=== PATIENT | female | born 1965 | race Caucasian/White ===

== ENCOUNTER 2018-05-29 10:52 | Outpatient (CLI) | payer BC ==
[2018-05-29 19:19] LABS: HB2 TOTAL 15.5 g/dL; HEMOGLOBIN A1C 0.58 g/dL; HEMOGLOBIN A1C % 5.6 % (4.6-6.2)
[2018-05-29 19:27] LABS: BASOPHILS % (AUTO) 0.4 %; EOSINOPHILS # (AUTO) 0.2 10^3/uL (0.0-0.7); EOSINOPHILS % (AUTO) 3.5 %; HGB - HEMOGLOBIN 14.7 g/dL (12.0-16.0); LYMPHOCYTES # (AUTO) 1.6 10^3/uL (1.5-3.5); LYMPHOCYTES % (AUTO) 31.4 %; MEAN CORPUSCULAR HEMOGLOBIN 29.5 pg (27.0-31.0); MEAN CORPUSCULAR HGB CONC 33.9 g/dL (32.0-36.0); MEAN CORPUSCULAR VOLUME 87.1 fL (81.0-99.0); MEAN PLATELET VOLUME 10.4 fL (7.9-10.8); MONOCYTES # (AUTO) 0.4 10^3/uL (0.0-1.0); MONOCYTES % (AUTO) 7.7 %; PLT - PLATELET COUNT 181 10^3/uL (130-450); RED BLOOD COUNT 4.99 10^6/uL (4.20-5.40); RED CELL DISTRIBUTION WIDTH 14.3 % (12.0-15.0); WHITE BLOOD COUNT 5.2 x10^3/uL (4.8-10.8)
[2018-05-29 19:37] LABS: ALBUMIN/GLOBULIN RATIO 1.7 (1.0-2.2); ALKALINE PHOSPHATASE 53 IU/L (42-121); ALT ALANINE AMINOTRANSFERASE 28 IU/L (10-60); AST ASPARTATE AMINOTRANSFERASE 20 IU/L (10-42); BILIRUBIN,TOTAL 1.8 mg/dL (0.2-1.0); BUN - BLOOD UREA NITROGEN 16 mg/dL (6-20); CALCIUM 9.5 mg/dL (8.5-10.3); CARBON DIOXIDE - CO2 30 mmol/L (21-32); CHLORIDE 101 mmol/L (101-111); CHOL/HDL RATIO 5.2 (<4.4); CHOLESTEROL 268 mg/dL; CREATININE 0.7 mg/dL (0.4-1.0); GFR - MDRD 87 (>89); GLUCOSE 100 mg/dL (70-100); HDL CHOLESTEROL 52 mg/dL; LDL CHOLESTEROL,CALCULATED 198 mg/dL; LDL/HDL RATIO 3.8 (<4.4); SODIUM 138 mmol/L (135-145); TOTAL PROTEIN 6.3 g/dL (6.7-8.2); VLDL CHOLESTEROL 18 mg/dL
== END 2018-05-29 10:53 | disposition home or self-care (01) ==
LOC: LAB.WCP 10:52
PROVIDERS: ATTEND Family Medicine
DX: E55.9 Vitamin D deficiency, unspecified (principal); R73.03 Prediabetes; I10 Essential (primary) hypertension; E03.9 Hypothyroidism, unspecified
CPT/HCPCS: 36415; 80053; 80061; 82306; 83036; 83721; 84443; 85025

== ENCOUNTER 2019-02-12 12:45 | Outpatient (CLI) | payer BC ==
[2019-02-12 20:37] LABS: CHOL/HDL RATIO 4.6 (<4.4); CHOLESTEROL 242 mg/dL; HDL CHOLESTEROL 53 mg/dL; LDL CHOLESTEROL,CALCULATED 173 mg/dL; LDL/HDL RATIO 3.3 (<4.4); VLDL CHOLESTEROL 16 mg/dL
== END 2019-02-12 12:46 | disposition home or self-care (01) ==
LOC: LAB.WCP 12:45
PROVIDERS: ATTEND Family Medicine
DX: E78.5 Hyperlipidemia, unspecified (principal)
CPT/HCPCS: 36415; 80061; 83721

== ENCOUNTER 2019-05-27 08:00 | Outpatient (CLI) | payer BC ==
[2019-05-27 19:37] LABS: ALBUMIN 4.1 g/dL (3.2-5.5); ALBUMIN/GLOBULIN RATIO 1.9 (1.0-2.2); ALKALINE PHOSPHATASE 42 IU/L (42-121); ALT ALANINE AMINOTRANSFERASE 16 IU/L (10-60); AST ASPARTATE AMINOTRANSFERASE 18 IU/L (10-42); BILIRUBIN,TOTAL 1.2 mg/dL (0.2-1.0); BUN - BLOOD UREA NITROGEN 16 mg/dL (6-20); CALCIUM 9.3 mg/dL (8.5-10.3); CARBON DIOXIDE - CO2 27 mmol/L (21-32); CHLORIDE 103 mmol/L (101-111); CHOL/HDL RATIO 3.7 (<4.4); CHOLESTEROL 200 mg/dL; CREATININE 0.8 mg/dL (0.4-1.0); GFR - MDRD 74 (>89); GLUCOSE 99 mg/dL (70-100); HDL CHOLESTEROL 54 mg/dL; LDL CHOLESTEROL,CALCULATED 129 mg/dL; LDL/HDL RATIO 2.4 (<4.4); SODIUM 141 mmol/L (135-145); TOTAL PROTEIN 6.3 g/dL (6.7-8.2); VLDL CHOLESTEROL 17 mg/dL
== END 2019-05-27 08:01 | disposition home or self-care (01) ==
LOC: LAB.WCP 08:00
PROVIDERS: ATTEND Physician Assistant
DX: E78.5 Hyperlipidemia, unspecified (principal); E55.9 Vitamin D deficiency, unspecified
CPT/HCPCS: 36415; 80053; 80061; 82306; 83721

== ENCOUNTER 2020-04-22 09:53 | Outpatient (CLI) | payer BC ==
--- NOTE | 2020-04-22 10:07 | XRAY Report ---
Reason: RIGHT SHOULDER ARTHRITIS Procedure Date: 04/22/2020 Accession Number: [id number] / [id number] Procedure: WCP - Shoulder 2 View RT CPT Code: Final Report FULL RESULT: PROCEDURE: Shoulder 2 View RT INDICATIONS: RIGHT SHOULDER ARTHRITIS TECHNIQUE: 2 views of the shoulder were acquired. COMPARISON: None. FINDINGS: Bones: No acute fractures or dislocations. Mild degenerative changes of the acromioclavicular joint. No suspicious bony lesions. Visualized ribs appear intact. Soft tissues: No suspicious soft tissue calcifications. IMPRESSION: Right shoulder without acute fracture or malalignment. Mild degenerative changes of the acromioclavicular joint. Reviewed by: Ramez Tai MD on 04/22/2020 10:06 AM PDT Approved by: Ramez Tai MD on 04/22/2020 10:06 AM PDT Station ID: [id number]
== END 2020-04-22 23:59 | disposition home or self-care (01) ==
LOC: DI.WCP 09:53
PROVIDERS: ATTEND Family Medicine
DX: M19.011 Primary osteoarthritis, right shoulder (principal)

== ENCOUNTER 2020-06-15 11:45 | Outpatient (CLI) | payer BC ==
[2020-06-15 18:24] LABS: BASOPHILS # (AUTO) 0.1 10^3/uL (0.0-0.1); BASOPHILS % (AUTO) 0.8 %; EOSINOPHILS # (AUTO) 0.2 10^3/uL (0.0-0.7); HGB - HEMOGLOBIN 14.8 g/dL (12.0-16.0); LYMPHOCYTES # (AUTO) 1.6 10^3/uL (1.5-3.5); LYMPHOCYTES % (AUTO) 25.7 %; MEAN CORPUSCULAR HEMOGLOBIN 29.7 pg (27.0-31.0); MEAN CORPUSCULAR HGB CONC 32.7 g/dL (32.0-36.0); MEAN PLATELET VOLUME 12.7 fL (7.9-10.8); MONOCYTES # (AUTO) 0.5 10^3/uL (0.0-1.0); NEUTROPHILS % (AUTO) 62.3 %; PLT - PLATELET COUNT 192 10^3/uL (130-450); RED BLOOD COUNT 4.98 10^6/uL (4.20-5.40); WHITE BLOOD COUNT 6.4 x10^3/uL (4.8-10.8)
[2020-06-15 18:46] LABS: ALBUMIN 4.2 g/dL (3.2-5.5); ALBUMIN/GLOBULIN RATIO 1.8 (1.0-2.2); ALKALINE PHOSPHATASE 52 IU/L (42-121); ALT ALANINE AMINOTRANSFERASE 22 IU/L (10-60); AST ASPARTATE AMINOTRANSFERASE 15 IU/L (10-42); BILIRUBIN,TOTAL 1.4 mg/dL (0.2-1.0); BUN - BLOOD UREA NITROGEN 15 mg/dL (6-20); CALCIUM 9.6 mg/dL (8.5-10.3); CARBON DIOXIDE - CO2 27 mmol/L (21-32); CHLORIDE 103 mmol/L (101-111); CHOL/HDL RATIO 4.6 (<4.4); CHOLESTEROL 254 mg/dL; CREATININE 0.9 mg/dL (0.4-1.0); GLUCOSE 124 mg/dL (70-100); HDL CHOLESTEROL 55 mg/dL; LDL CHOLESTEROL,CALCULATED 178 mg/dL; LDL/HDL RATIO 3.2 (<4.4); SODIUM 139 mmol/L (135-145); TOTAL PROTEIN 6.6 g/dL (6.7-8.2); VLDL CHOLESTEROL 21 mg/dL
== END 2020-06-15 23:59 | disposition home or self-care (01) ==
LOC: LAB.WCP 11:45
PROVIDERS: ATTEND Family Medicine
DX: E78.5 Hyperlipidemia, unspecified (principal); I10 Essential (primary) hypertension; E03.9 Hypothyroidism, unspecified
CPT/HCPCS: 36415; 80053; 80061; 82306; 83721; 84443; 85025

== ENCOUNTER 2020-06-18 12:34 | Outpatient (CLI) | payer BC | END 2020-06-18 12:35 | disposition home or self-care (01) | LOC: DI 12:34 | PROVIDERS: ATTEND Physician Assistant | DX: Z53.9 Procedure and treatment not carried out, unspecified reason (principal) ==

== ENCOUNTER 2020-07-02 12:51 | Outpatient (CLI) | payer BC ==
--- NOTE | 2020-07-02 16:48 | MRI Report ---
PROCEDURE: Shoulder RT W/O INDICATIONS: RIGHT SHOULDER PAIN TECHNIQUE: Noncontrast oblique coronal T2 fast spin echo with fat saturation, oblique sagittal T1 spin echo and T2 fast spin echo with fat saturation, axial T1 spin echo and T2 fast spin echo with fat saturation t hrough the shoulder. COMPARISON: Shoulder radiograph dated 05/31/2020. FINDINGS: Image quality: Excellent. Rotator cuff: There is full-thickness rupture of distal supraspinatus and infraspinatus at their inse rtion on humeral head with up to 3 cm medial retraction of torn tendon fibers to the level of acromio clavicular joint. Distal subscapularis tendinosis and moderate grade intrasubstance partial thickness tear is also noted.. Severe supraspinatus muscle atrophy and moderate infraspinatus muscle atrophy i s seen on sagittal images. Bones and bursae: No bone marrow contusions or fractures. Subcortical cyst formation in superior gle noid is seen. Moderate acromioclavicular joint and glenohumeral joint osteoarthritic changes are seen . Superior migration of humeral head in relation to glenoid is also noted. There is moderate amount o f joint fluid and subacromial subdeltoid bursal fluid. Capsule and soft tissues: In the absence of intra-articular contrast, there is suggestion of superio r anterior labral tear at 12 to 2:00 position. The glenohumeral ligaments appear intact. The long he ad of the biceps tendinosis and low to moderate grade partial-thickness tear is seen. The rotator in terval appears normal, without fibrosis. The coracohumeral ligament is normal in thickness. IMPRESSION: 1. Full-thickness rupture of distal supraspinatus and infraspinatus at their insertions on humeral he ad with up to 3 cm medial retraction of torn tendon fibers to the level of acromioclavicular joint. M oderate to severe supraspinatus muscle atrophy and moderate infraspinatus muscle atrophy. Distal subs capularis tendinosis and moderate grade intrasubstance partial thickness tear. 2. Moderate acromioclavicular joint and glenohumeral joint osteoarthritis. No fracture or dislocation . Moderate amount of joint effusion and subacromial subdeltoid bursal fluid. No gross intra-articular loose body. 3. Suggestion of superior anterior labral tear at 12 to 2:00 position. 4. Tendinosis and low-grade partial-thickness tear involving proximal intra-articular portion of long head of biceps tendon. Reviewed by: Vladimir Londono MD on 07/02/2020 4:47 PM PDT Approved by: Vladimir Londono MD on 07/02/2020 4:47 PM PDT Station ID: [id number]
== END 2020-07-02 12:52 | disposition home or self-care (01) ==
LOC: DI 12:51
PROVIDERS: ATTEND Physician Assistant
DX: M75.121 Complete rotator cuff tear or rupture of right shoulder, not specified as traumatic (principal); S46.111A Strain of muscle, fascia and tendon of long head of biceps, right arm, initial encounter; R93.6 Abnormal findings on diagnostic imaging of limbs; M19.011 Primary osteoarthritis, right shoulder

== ENCOUNTER 2021-01-25 13:12 | Outpatient (CLI) | payer BC ==
--- NOTE | 2021-01-26 09:55 | Mammography Report ---
BILATERAL DIGITAL SCREENING MAMMOGRAM 3D/2D: 01/25/2021 CLINICAL: Baseline exam. Routine screening. No prior exams were available for comparison. There are scattered fibroglandular elements in both br easts. There are grouped fine calcifications in the right breast at 11 o'clock posterior depth. There also is an oval equal density focal asymmetry with an indistinct margin in the right breast at 7 o'clock posterior depth. No other significant masses, calcifications, or other findings are seen in either breast. IMPRESSION: INCOMPLETE: NEEDS ADDITIONAL IMAGING EVALUATION The grouped fine calcifications in the right breast at 11 o'clock posterior depth are indeterminate. Mediolateral, spot magnification, and additional views are recommended. The oval equal density focal asymmetry in the right breast at 7 o'clock posterior depth is indetermin ate. Mediolateral and spot compression views as well as additional views with possible ultrasound ar e recommended. This exam was interpreted at Station ID: [id number]. NOTE: For mammograms, a report in lay terms will be sent to the patient. Approximately 15% of breast malignancies will not be visualized mammographically. In the management of a palpable breast mass, a negative mammogram must not discourage biopsy of a clinically suspicious lesion. Electronically Signed By: Rickie Rodriguez M.D. ddp/brijesh:01/25/2021 16:49:20 ACR BI-RADS Category 0: Incomplete 3340F PARENCHYMAL PATTERN: (A) - The breast(s) demonstrate(s) scattered fibroglandular densities. BI-RADS CATEGORY: (0) - 0 Mammo and US [id number] Immediate follow-up LATERALITY: (B)
== END 2021-01-25 13:13 | disposition home or self-care (01) ==
LOC: DI.N 13:12
DX: Z12.31 Encounter for screening mammogram for malignant neoplasm of breast (principal); N64.89 Other specified disorders of breast

== ENCOUNTER 2021-02-16 09:14 | Outpatient (CLI) | payer BC ==
--- NOTE | 2021-02-17 12:06 | Ultrasound Report ---
LIMITED ULTRASOUND OF RIGHT BREAST: 02/16/2021 CLINICAL: Patient returns today to evaluate an asymmetry in right breast. Comparison is made to exams dated: 02/16/2021 mammogram and 01/25/2021 mammogram - [facility]. Ultrasound of the right breast 7-10 o'clock region was performed. Up scale images of the real-time examination were reviewed. No significant abnormalities were seen sonographically in the right breast. Specifically, no finding to correspond to the patient's resolved screening mammographic abnormality. IMPRESSION: PROBABLY BENIGN NO sonographic abnormalities. A follow-up mammogram and an ultrasound in 6 months is recommended to d emonstrate stability of right breast calcifications and ensure stability of the resolved screening ma mmogram asymmetry. Findings and recommendations were conveyed to the patient at time of exam. This exam was interpreted at Station ID: [id number]. Electronically Signed By: Emily trujillo/:02/16/2021 10:41:32 Ultrasound BI-RADS: 3 Probably benign BI-RADS CATEGORY: (3) - 3 Mammo and [place] [id number] 6 month follow-up LATERALITY: (B)
--- NOTE | 2021-02-17 12:06 | Mammography Report ---
UNILATERAL RIGHT DIGITAL DIAGNOSTIC MAMMOGRAM 3D/2D: 02/16/2021 CLINICAL: Patient returns for magnification views of microcalcifications in the right breast. Patient returns today to evaluate a focal asymmetry in the right breast. Comparison is made to exam dated: 01/25/2021 mammogram - [facility]. There are scat tered fibroglandular elements in right breast. The oval equal density focal asymmetry with an indistinct margin in the right breast at 7 o'clock pos terior depth is no longer discretely seen and most likely is fibroglandular tissue. This is not conf irmed with additional views. There also are loosely grouped dystrophic calcifications in the right breast at 11 o'clock posterior depth. No other significant masses or calcifications are seen in the breast. IMPRESSION: INCOMPLETE: NEEDS ADDITIONAL IMAGING EVALUATION An ultrasound is recommended to confirm resolution of the oval equal density focal asymmetry in the r ight breast at 7 o'clock posterior depth. This was performed immediately following this exam. The calcifications in the right breast at 11 o'clock posterior depth most likely are fibrocystic lemus ge or sclerosing adenosis and are probably benign. A follow-up mammogram in 6 months is recommended. This exam was interpreted at Station ID: [id number]. NOTE: For mammograms, a report in lay terms will be sent to the patient. Approximately 15% of breast malignancies will not be visualized mammographically. In the management of a palpable breast mass, a negative mammogram must not discourage biopsy of a clinically suspicious lesion. Electronically Signed By: Emily trujillo/:02/16/2021 10:42:36 ACR BI-RADS Category 0: Incomplete 3340F PARENCHYMAL PATTERN: (A) - The breast(s) demonstrate(s) scattered fibroglandular densities. BI-RADS CATEGORY: (0) - 0 Ultrasound [id number] Immediate follow-up LATERALITY: (B)
== END 2021-02-16 09:15 | disposition home or self-care (01) ==
LOC: DI 09:14
PROVIDERS: ATTEND Physician Assistant Medical
DX: R92.8 Other abnormal and inconclusive findings on diagnostic imaging of breast (principal)

== ENCOUNTER 2021-04-28 08:00 | Outpatient (CLI) | payer BC ==
[2021-04-28 18:00] LABS: BASOPHILS # (AUTO) 0.1 10^3/uL (0.0-0.1); BASOPHILS % (AUTO) 0.9 %; EOSINOPHILS # (AUTO) 0.2 10^3/uL (0.0-0.7); HCT - HEMATOCRIT 48.4 % (37.0-47.0); HGB - HEMOGLOBIN 15.3 g/dL (12.0-16.0); LYMPHOCYTES # (AUTO) 1.8 10^3/uL (1.5-3.5); LYMPHOCYTES % (AUTO) 32.3 %; MEAN CORPUSCULAR HEMOGLOBIN 28.7 pg (27.0-31.0); MEAN CORPUSCULAR HGB CONC 31.6 g/dL (32.0-36.0); MEAN CORPUSCULAR VOLUME 90.6 fL (81.0-99.0); MEAN PLATELET VOLUME 12.6 fL (7.9-10.8); MONOCYTES # (AUTO) 0.5 10^3/uL (0.0-1.0); MONOCYTES % (AUTO) 9.3 %; NEUTROPHILS % (AUTO) 53.3 %; PLT - PLATELET COUNT 212 10^3/uL (130-450); RED BLOOD COUNT 5.34 10^6/uL (4.20-5.40); RED CELL DISTRIBUTION WIDTH 13.9 % (12.0-15.0); WHITE BLOOD COUNT 5.7 x10^3/uL (4.8-10.8)
[2021-04-28 18:22] LABS: ALBUMIN 4.3 g/dL (3.2-5.5); ALKALINE PHOSPHATASE 42 IU/L (42-121); ALT ALANINE AMINOTRANSFERASE 24 IU/L (10-60); AST ASPARTATE AMINOTRANSFERASE 18 IU/L (10-42); BUN - BLOOD UREA NITROGEN 18 mg/dL (6-20); CALCIUM 9.6 mg/dL (8.5-10.3); CARBON DIOXIDE - CO2 29 mmol/L (21-32); CHLORIDE 99 mmol/L (101-111); CHOL/HDL RATIO 5.4 (<4.4); CHOLESTEROL 250 mg/dL; CREATININE 0.8 mg/dL (0.4-1.0); GFR - MDRD 74 (>89); GLUCOSE 116 mg/dL (70-100); HDL CHOLESTEROL 46 mg/dL; LDL CHOLESTEROL,CALCULATED 178 mg/dL; LDL/HDL RATIO 3.9 (<4.4); SODIUM 138 mmol/L (135-145); TOTAL PROTEIN 6.4 g/dL (6.7-8.2); TRIGLYCERIDES 130 mg/dL; VLDL CHOLESTEROL 26 mg/dL
[2021-04-28 18:25] LABS: THYROID STIMULATING HORMONE 1.41 uIU/mL (0.34-5.60)
[2021-04-28 18:27] LABS: FREE T4 (FREE THYROXINE) 1.28 ng/dL (0.58-1.64)
[2021-04-28 20:26] LABS: ESTIMATED AVERAGE GLUCOSE 123 mg/dL (70-100); HEMOGLOBIN A1c% 5.9 % (4.27-6.07)
== END 2021-04-28 23:59 | disposition home or self-care (01) ==
LOC: LAB.WCP 08:00
PROVIDERS: ATTEND Nurse Practitioner
DX: I10 Essential (primary) hypertension (principal); E55.9 Vitamin D deficiency, unspecified; R73.03 Prediabetes; E03.9 Hypothyroidism, unspecified; E78.5 Hyperlipidemia, unspecified
CPT/HCPCS: 36415; 80053; 80061; 82306; 83036; 83721; 84439; 84443; 85025

== ENCOUNTER 2022-05-02 12:48 | Outpatient (CLI) | payer BC ==
--- NOTE | 2022-05-03 08:13 | Mammography Report ---
BILATERAL DIGITAL DIAGNOSTIC MAMMOGRAM 3D/2D: 05/02/2022 CLINICAL: Patient returns for a 6 month follow up of the right breast, due for bilateral exam. Focal assym and calcs. Comparison is made to exams dated: 02/16/2021 mammogram and 01/25/2021 mammogram - [facility]. There are scattered fibroglandular elements in both breasts. There are stable grouped dystrophic calcifications in the right breast at 11 o'clock posterior depth. No other significant masses, calcifications, or other findings are seen in either breast. IMPRESSION: BENIGN The stable grouped dystrophic calcifications in the right breast most likely are fibrocystic change o r sclerosing adenosis and are benign. There is no mammographic evidence of malignancy. Return to annual mammogram screening schedule is rec ommended. Based on the Tyrer Cuzick model (a risk assessment model) the patients lifetime risk is 7.2% and her 10 year risk is 2.6%. According to the ACR, ACS, and NCCN guidelines, an annual breast MRI exam mary g with mammogram is recommended if the patients lifetime risk is 20% or greater. This exam was interpreted at Station ID: [id number]. NOTE: For mammograms, a report in lay terms will be sent to the patient. Approximately 15% of breast malignancies will not be visualized mammographically. In the management of a palpable breast mass, a negative mammogram must not discourage biopsy of a clinically suspicious lesion. Electronically Signed By: Han Noble acr/:05/02/2022 13:50:28 ACR BI-RADS Category 2: Benign Finding(s) 3342F PARENCHYMAL PATTERN: (A) - The breast(s) demonstrate(s) scattered fibroglandular densities. BI-RADS CATEGORY: (2) - 2 Mammogram [id number] return to screening LATERALITY: (B)
== END 2022-05-02 12:49 | disposition home or self-care (01) ==
LOC: DI 12:48
PROVIDERS: ATTEND Nurse Practitioner
DX: R92.1 Mammographic calcification found on diagnostic imaging of breast (principal)

== ENCOUNTER 2022-07-24 11:02 | Outpatient (CLI) | payer BC ==
[2022-07-24 18:25] LABS: ALBUMIN 4.2 g/dL (3.2-5.5); ALBUMIN/GLOBULIN RATIO 1.8 (1.0-2.2); ALKALINE PHOSPHATASE 50 IU/L (42-121); ALT ALANINE AMINOTRANSFERASE 29 IU/L (10-60); AST ASPARTATE AMINOTRANSFERASE 21 IU/L (10-42); BILIRUBIN,TOTAL 1.1 mg/dL (0.2-1.0); BUN - BLOOD UREA NITROGEN 16 mg/dL (6-20); CALCIUM 9.7 mg/dL (8.5-10.3); CARBON DIOXIDE - CO2 28 mmol/L (21-32); CHLORIDE 101 mmol/L (101-111); CHOL/HDL RATIO 4.9 (<4.4); CHOLESTEROL 207 mg/dL; CREATININE 0.9 mg/dL (0.4-1.0); GFR - MDRD 64 (>89); GLUCOSE 107 mg/dL (70-100); HDL CHOLESTEROL 42 mg/dL; LDL CHOLESTEROL,CALCULATED 138 mg/dL; LDL/HDL RATIO 3.3 (<4.4); POTASSIUM 3.9 mmol/L (3.5-5.0); SODIUM 137 mmol/L (135-145); TOTAL PROTEIN 6.6 g/dL (6.7-8.2); TRIGLYCERIDES 135 mg/dL; URIC ACID 6.8 mg/dL (2.6-7.2); VLDL CHOLESTEROL 27 mg/dL
[2022-07-24 18:28] LABS: BASOPHILS # (AUTO) 0.1 10^3/uL (0.0-0.1); BASOPHILS % (AUTO) 0.8 %; EOSINOPHILS # (AUTO) 0.3 10^3/uL (0.0-0.7); EOSINOPHILS % (AUTO) 5.1 %; HCT - HEMATOCRIT 47.3 % (37.0-47.0); HGB - HEMOGLOBIN 15.6 g/dL (12.0-16.0); LYMPHOCYTES # (AUTO) 1.9 10^3/uL (1.5-3.5); LYMPHOCYTES % (AUTO) 32.6 %; MEAN CORPUSCULAR HEMOGLOBIN 28.8 pg (27.0-31.0); MEAN CORPUSCULAR VOLUME 87.4 fL (81.0-99.0); MEAN PLATELET VOLUME 12.7 fL (7.9-10.8); MONOCYTES # (AUTO) 0.5 10^3/uL (0.0-1.0); MONOCYTES % (AUTO) 8.7 %; NEUTROPHILS # (AUTO) 3.1 10^3/uL (1.5-6.6); NEUTROPHILS % (AUTO) 52.6 %; PLT - PLATELET COUNT 222 10^3/uL (130-450); RED BLOOD COUNT 5.41 10^6/uL (4.20-5.40); RED CELL DISTRIBUTION WIDTH 13.4 % (12.0-15.0); WHITE BLOOD COUNT 5.9 x10^3/uL (4.8-10.8)
[2022-07-24 18:29] LABS: CRP - C-REACTIVE PROTEIN < 1.0 mg/dL (0-1.0)
[2022-07-24 18:31] LABS: THYROID STIMULATING HORMONE 1.55 uIU/mL (0.34-5.60)
[2022-07-24 18:33] LABS: FREE T4 (FREE THYROXINE) 1.26 ng/dL (0.58-1.64)
[2022-07-24 20:32] LABS: ESTIMATED AVERAGE GLUCOSE 120 mg/dL (70-100); HEMOGLOBIN A1c% 5.8 % (4.27-6.07)
[2022-07-24 20:44] LABS: RHEUMATOID FACTOR NEGATIVE (Negative)
[2022-07-26 04:08] LABS: HCV AB <0.1 s/co ratio (0.0-0.9)
[2022-07-26 18:08] LABS: ANTI-DNA (DS) AB QN <1 IU/mL (0-9); CENTROMERE B ANTIBODIES <0.2 AI (0.0-0.9); CHROMATIN ANTIBODIES <0.2 AI (0.0-0.9); JO-1 AB <0.2 AI (0.0-0.9); RIBOSOMAL P ANTIBODIES <0.2 AI (0.0-0.9); RNP ANTIBODIES <0.2 AI (0.0-0.9); SCLERODERMA-70 ANTIBODIES <0.2 AI (0.0-0.9); SJOGREN'S ANTI-SS-A <0.2 AI (0.0-0.9); SJOGREN'S ANTI-SS-B <0.2 AI (0.0-0.9); SMITH ANTIBODIES <0.2 AI (0.0-0.9); SMITH/RNP ANTIBODIES <0.2 AI (0.0-0.9)
[2022-07-27 21:07] LABS: CYCLIC CITRULLINATED PEP IGG/A 5 units (0-19)
== END 2022-07-24 11:03 | disposition home or self-care (01) ==
LOC: LAB.N 11:02
PROVIDERS: ATTEND Nurse Practitioner
DX: I10 Essential (primary) hypertension (principal); E78.5 Hyperlipidemia, unspecified; Z12.11 Encounter for screening for malignant neoplasm of colon; R73.03 Prediabetes; E03.9 Hypothyroidism, unspecified; M13.0 Polyarthritis, unspecified; Z11.59 Encounter for screening for other viral diseases
CPT/HCPCS: 36415; 80053; 80061; 83036; 83721; 84439; 84443; 84550; 85025; 85651; 86140; 86200; 86225; 86235; 86430; 86803

== ENCOUNTER 2023-11-19 10:41 | Outpatient (CLI) | payer BC ==
--- NOTE | 2023-11-20 11:58 | Mammography Report ---
BILATERAL DIGITAL SCREENING MAMMOGRAM 3D/2D: 11/19/2023 CLINICAL: Routine screening. Comparison is made to exams dated: 05/02/2022 mammogram, 02/16/2021 ultrasound, 02/16/2021 mammogram, a nd 01/25/2021 mammogram - [facility]. Both breasts are heterogeneously dense, which may obscure small masses (category c / 51-75% glandular tissue). There are benign calcifications in the right breast. No significant masses, calcifications, or other findings are seen in either breast. There has been no significant interval change. IMPRESSION: BENIGN There is no mammographic evidence of malignancy. A 1 year screening mammogram is recommended. Based on the Tyrer Cuzick model (a risk assessment model) the patient's lifetime risk is 10.4% and he r 10 year risk is 4.2%. According to the ACR, ACS, and NCCN guidelines, an annual breast MRI exam jazzy ng with mammogram is recommended if the patients lifetime risk is 20% or greater. This exam was interpreted at Station ID: [id number]. NOTE: For mammograms, a report in lay terms will be sent to the patient. Approximately 15% of breast malignancies will not be visualized mammographically. In the management of a palpable breast mass, a negative mammogram must not discourage biopsy of a clinically suspicious lesion. Electronically Signed By: Cristina garcia/brijesh:11/19/2023 17:04:11 ACR BI-RADS Category 2: Benign Finding(s) 3342F PARENCHYMAL PATTERN: (D) - The breast(s) demonstrate(s) heterogeneously dense fibroglandular peña faulkner. BI-RADS CATEGORY: (2) - 2 Mammogram [id number] 1 year screening LATERALITY: (B)
== END 2023-11-19 10:42 | disposition home or self-care (01) ==
LOC: DI.N 10:41
PROVIDERS: ATTEND Nurse Practitioner
DX: Z12.31 Encounter for screening mammogram for malignant neoplasm of breast (principal); R92.333 Mammographic heterogeneous density, bilateral breasts; R92.1 Mammographic calcification found on diagnostic imaging of breast; Z00.00 Encounter for general adult medical examination without abnormal findings; E78.5 Hyperlipidemia, unspecified; R73.03 Prediabetes; E03.9 Hypothyroidism, unspecified
CPT/HCPCS: 36415; 80053; 80061; 83036; 83721; 84439; 84443; 85025

== ENCOUNTER 2023-11-19 10:44 | Outpatient (CLI) | payer BC ==
[2023-11-19 17:58] LABS: BASOPHILS # (AUTO) 0.1 10^3/uL (0.0-0.1); BASOPHILS % (AUTO) 0.6 %; EOSINOPHILS # (AUTO) 0.2 10^3/uL (0.0-0.7); EOSINOPHILS % (AUTO) 2.9 %; HCT - HEMATOCRIT 48.1 % (37.0-47.0); HGB - HEMOGLOBIN 15.6 g/dL (12.0-16.0); LYMPHOCYTES # (AUTO) 2.4 10^3/uL (1.5-3.5); LYMPHOCYTES % (AUTO) 29.8 %; MEAN CORPUSCULAR HEMOGLOBIN 28.7 pg (27.0-31.0); MEAN CORPUSCULAR HGB CONC 32.4 g/dL (32.0-36.0); MEAN CORPUSCULAR VOLUME 88.6 fL (81.0-99.0); MEAN PLATELET VOLUME 11.6 fL (7.9-10.8); MONOCYTES # (AUTO) 0.7 10^3/uL (0.0-1.0); MONOCYTES % (AUTO) 8.6 %; NEUTROPHILS # (AUTO) 4.6 10^3/uL (1.5-6.6); NEUTROPHILS % (AUTO) 57.8 %; PLT - PLATELET COUNT 292 10^3/uL (130-450); RED BLOOD COUNT 5.43 10^6/uL (4.20-5.40); RED CELL DISTRIBUTION WIDTH 13.4 % (12.0-15.0); WHITE BLOOD COUNT 7.9 x10^3/uL (4.8-10.8)
[2023-11-19 18:54] LABS: ALBUMIN 4.3 g/dL (3.2-5.5); ALBUMIN/GLOBULIN RATIO 1.7 (1.0-2.2); ALKALINE PHOSPHATASE 66 IU/L (42-121); ALT ALANINE AMINOTRANSFERASE 22 IU/L (10-60); AST ASPARTATE AMINOTRANSFERASE 14 IU/L (10-42); BILIRUBIN,TOTAL 0.9 mg/dL (0.2-1.0); BUN - BLOOD UREA NITROGEN 18 mg/dL (6-20); CALCIUM 9.9 mg/dL (8.5-10.3); CARBON DIOXIDE - CO2 29 mmol/L (21-32); CHLORIDE 101 mmol/L (101-111); CHOL/HDL RATIO 6.3 (<4.4); CHOLESTEROL 276 mg/dL; CREATININE 0.9 mg/dL (0.6-1.3); GFR - MDRD 64 (>89); GLUCOSE 133 mg/dL (74-104); HDL CHOLESTEROL 44 mg/dL; LDL CHOLESTEROL,CALCULATED 202 mg/dL; LDL/HDL RATIO 4.6 (<4.4); POTASSIUM 3.8 mmol/L (3.5-4.5); SODIUM 137 mmol/L (135-145); TOTAL PROTEIN 6.8 g/dL (6.4-8.9); TRIGLYCERIDES 152 mg/dL (48-352); VLDL CHOLESTEROL 30 mg/dL
[2023-11-19 19:04] LABS: THYROID STIMULATING HORMONE 1.95 uIU/mL (0.34-5.60)
[2023-11-19 20:35] LABS: ESTIMATED AVERAGE GLUCOSE 123 mg/dL (70-100); HEMOGLOBIN A1c% 5.9 % (4.27-6.07)
== END 2023-11-19 10:45 | disposition home or self-care (01) ==
LOC: LAB.N 10:44
PROVIDERS: ATTEND Nurse Practitioner
DX: Z00.00 Encounter for general adult medical examination without abnormal findings (principal); E78.5 Hyperlipidemia, unspecified; R73.03 Prediabetes; E03.9 Hypothyroidism, unspecified
CPT/HCPCS: 36415; 80053; 80061; 83036; 83721; 84439; 84443; 85025

== ENCOUNTER 2024-04-09 10:46 | Outpatient (CLI) | payer BC ==
[2024-04-09 18:12] LABS: CHOL/HDL RATIO 3.7 (<4.4); CHOLESTEROL 180 mg/dL; HDL CHOLESTEROL 49 mg/dL; LDL CHOLESTEROL,CALCULATED 111 mg/dL; LDL/HDL RATIO 2.3 (<4.4); TRIGLYCERIDES 101 mg/dL (48-352); VLDL CHOLESTEROL 20 mg/dL
== END 2024-04-09 10:47 | disposition home or self-care (01) ==
LOC: LAB.N 10:46
PROVIDERS: ATTEND Nurse Practitioner
DX: Z51.81 Encounter for therapeutic drug level monitoring (principal); Z79.899 Other long term (current) drug therapy
CPT/HCPCS: 36415; 80061; 83721